=== PATIENT | female | born 1960 | race Caucasian/White ===

== ENCOUNTER 2017-07-21 11:19 | Emergency (ER) | payer MEDICARE ==
[2015-09-20 20:19] VITALS: BMI 26.4
[~2017-07-21 11:19] MED LIST: CRESTOR40 MG PO; GLUCOPHAGE500 MG PO; LIPITOR40 MG PO; NITROSTAT0.4 MG SL; PLAVIX75 MG PO; TOPROL XL50 MG PO; TRILIPIX135 MG PO; VITAMIN D2000 UNIT; VITAMIN D250000 UNIT PO; ZESTRIL20 MG PO
[2017-07-21 11:48] LABS: BASOPHILS 0.5 % (0-2); HEMATOCRIT 38.1 % (36.0-48.0); HEMOGLOBIN 12.8 g/dL (12-16); IMMATURE GRANULOCYTES 0.2 % (0-5); LYMPHOCYTES 28.1 % (15-50); MCHC 33.6 g/dL (31.0-37.0); MCV 86.2 fL (80.0-100.0); MEAN PLATELET VOLUME 9.2 fL (7.4-10.4); MONOCYTES 7.2 % (2-11); RBC 4.42 10x6/uL (4.00-5.40); RDW 13.8 % (11.5-14.5); WBC 9.2 10x3/uL (4.8-10.8)
[2017-07-21 11:48] LABS: APPEARANCE TURBID (CLEAR); BILIRUBIN NEGATIVE (NEGATIVE); COLOR RED (YELLOW); GLUCOSE NEGATIVE (NEGATIVE); KETONE NEGATIVE (NEGATIVE); LEUKOCYTE ESTERASE TRACE (NEGATIVE); NITRITE NEGATIVE (NEGATIVE); PROTEIN 3+ mg/dL (NEGATIVE); UROBILINOGEN NORMAL (NORMAL)
[2017-07-21 11:50] LABS: BACTERIA MODERATE /hpf (NONE SEEN); EPITHELIAL CELLS 0-5 /hpf (0-5); MUCUS <1+ /lpf (NONE SEEN); RED CELLS - URINE >50 /hpf (0-5); WHITE CELLS - URINE 0-5 /hpf (0-5)
[2017-07-21 11:52] LABS: PLATELET COUNT 208 10x3/uL (130-400)
[2017-07-21 12:02] LABS: ALBUMIN 3.5 g/dL (3.4-5.0); ALKALINE PHOSPHATASE 48 U/L (46-116); ALT (SGPT) 36 U/L (10-68); BILIRUBIN - TOTAL 0.39 mg/dL (0.2-1.3); CALC OSMOLALITY 282 mosm/kg (275-300); CALCIUM 8.7 mg/dL (8.5-10.1); CARBON DIOXIDE 25.4 mmol/L (21.0-32.0); CHLORIDE - SERUM 105 mmol/L (98-107); CREATININE - SERUM 0.8 mg/dL (0.6-1.3); POTASSIUM - SERUM 3.1 mmol/L (3.5-5.1); PROTEIN - SERUM 6.8 g/dL (6.4-8.2); SODIUM 142 mmol/L (136-145); UREA NITROGEN 12 mg/dL (7-18); eGFR NON AFRICAN AMERICAN 79 mL/min (90-120)
[2017-07-21 12:06] LABS: AMYLASE - SERUM 57 U/L (25-115); GLUCOSE 94 mg/dL (74-106); LIPASE 167 U/L (73-393)
[2017-07-21 13:35] LABS: APTT 25.2 SECONDS (22.8-39.4); INR 0.85 (0.85-1.17); PROTIME 11.4 SECONDS (11.6-15.0)
== END 2017-07-21 15:52 | disposition home or self-care (01) ==
LOC: D.ER 11:19
PROVIDERS: Emergency Medicine; Nurse Practitioner Family
DX: R31.9 Hematuria, unspecified (principal); R10.9 Unspecified abdominal pain; E11.9 Type 2 diabetes mellitus without complications; I10 Essential (primary) hypertension; F17.200 Nicotine dependence, unspecified, uncomplicated